=== PATIENT | male | born 1940 | race Hispanic/Latino ===

== ENCOUNTER 2024-09-28 17:38 | Inpatient (IN) | payer MEDICARE ==
[~2024-09-28] VITALS: Ht 160 cm; Wt 71.2 kg
[2024-09-28] MEDS ORDERED: ASPI81CH33 PO (18:00)
[2024-09-28] MEDS ORDERED: FINA5TAB2 PO ×2 (18:00→20:01)
[2024-09-28] MEDS ORDERED: THERTAB52 PO (18:00)
[2024-09-28] MEDS: LIDOCAINE 2% 5ML JELLY UROJET TOP ONE (19:45)
[2024-09-28 20:06] LABS: KETONE, URINE AUTO RFX NEGATIVE (NEGATIVE); MUCUS, URINE RFX SMALL (NEGATIVE); RBC, URINE AUTO RFX 13 /HPF (0-3); SQUAM EPITHELIAL CELL UR AURFX 3 /HPF (0-6)
[2024-09-28 20:10] LABS: LEUKOCYTE ESTERASE UR AUTO RFX 3+ (NEGATIVE); NITRITE, URINE AUTO RFX POSITIVE (NEGATIVE); WBC, URINE AUTO RFX TNTC /HPF (0-3)
[2024-09-28] MEDS: CEPHALEXIN 500 MG CAP PO ONE (20:25)
[2024-09-28] MEDS ORDERED: CEPH500C PO ×2 (20:37→23:38)
[2024-09-28] MEDS: LIDOCAINE 1% MDV 20ML VIAL SC ONE (21:55)
[2024-09-28] MEDS ORDERED: ONDANSETRON 4MG 2ML VIAL As Ordered ONE (22:37)
[2024-09-28] MEDS: ONDANSETRON 4MG 2ML VIAL IV ONE (22:41)
[2024-09-28] MEDS: MORPHINE 4 MG/ML 1ML VIAL IV ONE (22:42)
[2024-09-28] MEDS ORDERED: HOME MED LIST COMPLETE! XX SCH (23:40)
[2024-09-29] VITALS (55 sets, daily range): BP systolic 80–120; BP diastolic 49–87; TEMP 97.8–98.9; O2SAT 91–99
[2024-09-29] MEDS ORDERED: MAALOX 30 ML SUSP *UDC PO PRN (01:50)
[2024-09-29] MEDS: ACETAMINOPHEN *IV* 1,000 MG in IV 1 EA IV ONE (03:00)
[2024-09-29 03:30] LABS: EOS # 0.1 10^3/uL (0.0-0.5); EOS % 0.9 % (0.0-3.0); HEMATOCRIT 41.3 % (42.0-52.0); HEMOGLOBIN 13.1 g/dl (13.5-17.5); LYMPH # 0.5 10^3/uL (1.5-5.0); LYMPH % 9.2 % (24.0-44.0); MEAN CORPUSCULAR HEMOGLOBIN 29.8 pg (27.0-33.0); MEAN CORPUSCULAR HGB CONC 31.7 g/dl (32.0-36.5); MEAN CORPUSCULAR VOLUME 94.1 fl (80.0-96.0); MONO # 0.1 10^3/uL (0.0-0.8); MONO % 1.5 % (2.0-8.0); NEUTROPHILS # 4.7 10^3/uL (1.5-8.5); NEUTROPHILS % 88.2 % (36.0-66.0); PLATELET COUNT, AUTOMATED 268 10^3/uL (150-450); RED BLOOD COUNT 4.39 10^6/uL (4.30-6.10); WHITE BLOOD COUNT 5.3 10^3/uL (4.0-10.0)
[2024-09-29 03:44] LABS: INR 0.94; PARTIAL THROMBOPLASTIN TIME 26.3 SECONDS (24.8-34.2); PROTHROMBIN TIME 12.9 SECONDS (12.5-14.5)
[2024-09-29 03:56] LABS: ALBUMIN 3.7 G/DL (3.2-5.2); ALKALINE PHOSPHATASE 78 U/L (40-129); ALT/SGPT 15 U/L (7.0-40); AST/SGOT 17 U/L (<34); BILIRUBIN,TOTAL 0.6 MG/DL (0.3-1.2); BLOOD UREA NITROGEN 19 MG/DL (9-23); CALCIUM LEVEL 8.7 MG/DL (8.3-10.6); CARBON DIOXIDE LEVEL 24 MMOL/L (20-31); CHLORIDE LEVEL 104 MMOL/L (98-107); CREATININE FOR GFR 1.12 MG/DL (0.70-1.30); GLOMERULAR FILTRATION RATE > 60.0 (>35); GLUCOSE, FASTING 158 MG/DL (74-106); POTASSIUM SERUM 4.2 MMOL/L (3.5-5.1); SODIUM LEVEL 141 MMOL/L (136-145); TOTAL PROTEIN 7.6 G/DL (5.7-8.2)
[2024-09-29] MEDS: cefTRIAXone SOD 2 GM in DEXTROSE 5% (D5W) ADV/MINI-BAG 50 ML IV SCH (04:10)
[2024-09-29] MEDS: NS 500 ML IV ONE (04:15)
[2024-09-29 06:47] LABS: C REACTIVE PROTEIN QUANTITATIV 0.79 MG/DL (<1.0)
[2024-09-29 06:59] LABS: PROCALCITONIN 0.29 ng/ml
[2024-09-29] MEDS: NS (Normal Saline) 0.9% 1,000 ML IV ONE ×2 (08:21→09:50)
[2024-09-29] MEDS ORDERED: ISOVUE-300 61% 100ML VIAL As Ordered ONE (08:27)
[2024-09-29] MEDS ORDERED: CEPHALEXIN 500 MG CAP PO SCH (09:00)
[2024-09-29] MEDS: FINASTERIDE 5MG TAB PO SCH (09:00)
[2024-09-29] MEDS: DOCUSATE SODIUM 100MG CAPSULE PO SCH (09:00)
[2024-09-29 09:47] LABS: APPEARANCE, URINE CLOUDY (CLEAR); BACTERIA, URINE AUTO 2+ (NEGATIVE); BILIRUBIN, URINE AUTO NEGATIVE (NEGATIVE); BLOOD, URINE BLOOD 2+ (NEGATIVE); COLOR, URINE YELLOW (YELLOW); GLUCOSE, URINE (UA) AUTO NEGATIVE (NEGATIVE); KETONE, URINE AUTO NEGATIVE (NEGATIVE); LEUKOCYTE ESTERASE, URINE AUTO 3+ (NEGATIVE); MUCUS, URINE SMALL (NEGATIVE); NITRITE, URINE AUTO POSITIVE (NEGATIVE); PROTEIN, URINE AUTO 2+ mg/dL (NEGATIVE); RBC, URINE AUTO 142 /HPF (0-3); SQUAMOUS EPITHELIAL CELL UR AU 0 /HPF (0-6); UROBILINOGEN, URINE AUTO 0.2 mg/dL (0.0-2.0); WBC, URINE AUTO TNTC /HPF (0-3)
[2024-09-29] MEDS: VASOPRESSIN IN 0.9 % NACL 20 UNIT in IV 1 EA IV STA (11:12)
[2024-09-29] MEDS: NOREPINEPHRINE 4MG IN D5 250ML 4 MG in IV 1 EA IV STA (11:12)
[2024-09-29] MEDS: CEFEPIME HCL 2 GM in DEXTROSE 5% (D5W) ADV/MINI-BAG 50 ML IV STA (11:48)
[2024-09-29] MEDS: VASOPRESSIN IN 0.9 % NACL 20 UNIT in IV 1 EA IV SCH (13:30)
[2024-09-29] MEDS: ACETAMINOPHEN 325 MG TAB PO PRN (14:52)
[2024-09-29] MEDS: PANTOPRAZOLE 40MG VIAL IV SCH (14:52)
[2024-09-29] MEDS: ACETAMINOPHEN *IV* 1,000 MG in IV 1 EA IV STA (16:53)
[2024-09-29] MEDS: NOREPINEPHRINE 4MG IN D5 250ML 4 MG in IV 1 EA IV SCH (18:20)
[2024-09-29 19:23] LABS: HEMATOCRIT 34.4 % (42.0-52.0); MEAN CORPUSCULAR HEMOGLOBIN 29.9 pg (27.0-33.0); MEAN CORPUSCULAR HGB CONC 31.4 g/dl (32.0-36.5); MEAN CORPUSCULAR VOLUME 95.3 fl (80.0-96.0); PLATELET COUNT, AUTOMATED 263 10^3/uL (150-450); RED BLOOD COUNT 3.61 10^6/uL (4.30-6.10); WHITE BLOOD COUNT 16.2 10^3/uL (4.0-10.0)
[2024-09-29 19:25] LABS: HEMOGLOBIN 10.8 g/dl (13.5-17.5)
[2024-09-29 20:06] LABS: ATYPICAL LYMPH 1 % (0-5); MONOCYTES 6 % (0-5); NEUTROPHILS 82 % (28-66); PLATELET ESTIMATE NORMAL (NORMAL)
[2024-09-29] MEDS: ALPRAZolam 0.25 MG TAB PO PRN (20:06)
[2024-09-29 20:08] LABS: POIKILOCYTOSIS 1+
[2024-09-29] MEDS: OLANZapine INTRAMUSCULAR 10MG VIAL IM ONE (21:58)
[2024-09-29 22:40] LABS: ALBUMIN 2.5 G/DL (3.2-5.2); ALKALINE PHOSPHATASE 46 U/L (40-129); ALT/SGPT 18 U/L (7.0-40); AST/SGOT 25 U/L (<34); BILIRUBIN,TOTAL 0.3 MG/DL (0.3-1.2); BLOOD UREA NITROGEN 25 MG/DL (9-23); CALCIUM LEVEL 8.1 MG/DL (8.3-10.6); CARBON DIOXIDE LEVEL 22 MMOL/L (20-31); CHLORIDE LEVEL 108 MMOL/L (98-107); CREATININE FOR GFR 1.17 MG/DL (0.70-1.30); GLOMERULAR FILTRATION RATE > 60.0 (>35); GLUCOSE, FASTING 140 MG/DL (74-106); POTASSIUM SERUM 4.5 MMOL/L (3.5-5.1); SODIUM LEVEL 141 MMOL/L (136-145); TOTAL PROTEIN 5.6 G/DL (5.7-8.2)
[2024-09-29] MEDS: LR 1,000 ML IV ONE (23:17)
[2024-09-30] VITALS (101 sets, daily range): BP systolic 81–128; BP diastolic 46–93; TEMP 98.6–101; O2SAT 83–98
[2024-09-30] MEDS: CEFEPIME HCL 2 GM in DEXTROSE 5% (D5W) ADV/MINI-BAG 50 ML IV SCH (00:34)
[2024-09-30 05:30] LABS: HEMATOCRIT 31.1 % (42.0-52.0); HEMOGLOBIN 10.1 g/dl (13.5-17.5); MEAN CORPUSCULAR HEMOGLOBIN 30.1 pg (27.0-33.0); MEAN CORPUSCULAR HGB CONC 32.5 g/dl (32.0-36.5); MEAN CORPUSCULAR VOLUME 92.8 fl (80.0-96.0); PLATELET COUNT, AUTOMATED 196 10^3/uL (150-450); RED BLOOD COUNT 3.35 10^6/uL (4.30-6.10); WHITE BLOOD COUNT 15.7 10^3/uL (4.0-10.0)
[2024-09-30 05:49] LABS: ALBUMIN 2.3 G/DL (3.2-5.2); ALKALINE PHOSPHATASE 46 U/L (40-129); ALT/SGPT 16 U/L (7.0-40); AST/SGOT 31 U/L (<34); BILIRUBIN,TOTAL 0.4 MG/DL (0.3-1.2); BLOOD UREA NITROGEN 24 MG/DL (9-23); CALCIUM LEVEL 7.9 MG/DL (8.3-10.6); CARBON DIOXIDE LEVEL 26 MMOL/L (20-31); CHLORIDE LEVEL 110 MMOL/L (98-107); CREATININE FOR GFR 1.01 MG/DL (0.70-1.30); GLOMERULAR FILTRATION RATE > 60.0 (>35); GLUCOSE, FASTING 101 MG/DL (74-106); MAGNESIUM LEVEL 1.6 MG/DL (1.8-2.4); POTASSIUM SERUM 4.1 MMOL/L (3.5-5.1); SODIUM LEVEL 144 MMOL/L (136-145); TOTAL PROTEIN 5.3 G/DL (5.7-8.2)
[2024-09-30 06:07] LABS: ANISOCYTOSIS 1+; BASOPHILS 1 % (0-1); LYMPHOCYTES 4 % (16-44); MONOCYTES 4 % (0-5); NEUTROPHILS 75 % (28-66); PLATELET ESTIMATE NORMAL (NORMAL)
[2024-09-30] MEDS: MAG SULF 1GM/100ML (MAG RUN) 1 GM in IV 1 EA IV SCH (06:27)
[2024-09-30] MEDS: cefTRIAXone SOD 2 GM in DEXTROSE 5% (D5W) ADV/MINI-BAG 50 ML IV SCH (09:40)
[2024-09-30] MEDS: ENOXAPARIN 40MG/0.4ML SYRINGE (J1650 PER 10MG) SC SCH (09:40)
[2024-09-30 11:04] LABS: PHOSPHORUS LEVEL 3.2 MG/DL (2.4-5.1)
[2024-09-30] MEDS: D5W/LR 1,000 ML IV SCH (15:32)
[2024-09-30] MEDS: DOCUSATE SOD LIQ 100MG/10ML UDC PO ONE (18:46)
[2024-09-30] MEDS ORDERED: ACETAMINOPHEN *IV* 1,000 MG in IV 1 EA IV ONE (21:10)
[2024-09-30] MEDS: ACETAMINOPHEN *IV* 1,000 MG in IV 1 EA IV ONE (21:19)
[2024-10-01] VITALS (52 sets, daily range): BP systolic 84–163; BP diastolic 42–84; TEMP 97.2–99.8; O2SAT 93–97
[2024-10-01] MEDS: OLANZapine INTRAMUSCULAR 10MG VIAL IM ONE (00:38)
[2024-10-01 04:09] LABS: HEMATOCRIT 32.3 % (42.0-52.0); HEMOGLOBIN 10.3 g/dl (13.5-17.5); MEAN CORPUSCULAR HEMOGLOBIN 29.4 pg (27.0-33.0); MEAN CORPUSCULAR HGB CONC 31.9 g/dl (32.0-36.5); MEAN CORPUSCULAR VOLUME 92.3 fl (80.0-96.0); PLATELET COUNT, AUTOMATED 211 10^3/uL (150-450); WHITE BLOOD COUNT 14.4 10^3/uL (4.0-10.0)
[2024-10-01 04:27] LABS: ALBUMIN 2.2 G/DL (3.2-5.2); ALKALINE PHOSPHATASE 52 U/L (40-129); ALT/SGPT 18 U/L (7.0-40); AST/SGOT 35 U/L (<34); BILIRUBIN,TOTAL 0.3 MG/DL (0.3-1.2); BLOOD UREA NITROGEN 19 MG/DL (9-23); CALCIUM LEVEL 8.2 MG/DL (8.3-10.6); CARBON DIOXIDE LEVEL 26 MMOL/L (20-31); CHLORIDE LEVEL 111 MMOL/L (98-107); CREATININE FOR GFR 0.76 MG/DL (0.70-1.30); GLOMERULAR FILTRATION RATE > 60.0 (>35); GLUCOSE, FASTING 83 MG/DL (74-106); PHOSPHORUS LEVEL 2.1 MG/DL (2.4-5.1); POTASSIUM SERUM 3.9 MMOL/L (3.5-5.1); SODIUM LEVEL 145 MMOL/L (136-145); TOTAL PROTEIN 5.2 G/DL (5.7-8.2)
[2024-10-01 04:39] LABS: EOSINOPHILS 5 % (0-3); LYMPHOCYTES 8 % (16-44); MONOCYTES 3 % (0-5); NEUTROPHILS 73 % (28-66)
[2024-10-01 04:40] LABS: ANISOCYTOSIS 1+
[2024-10-01 04:46] LABS: PLATELET ESTIMATE NORMAL (NORMAL)
[2024-10-01] MEDS: DOCUSATE SOD LIQ 100MG/10ML UDC PO SCH (09:04)
[2024-10-01] MEDS: POTASSIUM PHOSPHATE INJ 30 MMOL in D5W 500 ML IV ONE (10:22)
[2024-10-01] MEDS ORDERED: ISOVUE-370 76% 100ML VIAL As Ordered ONE (11:14)
[2024-10-01 12:33] LABS: APPEARANCE, URINE HAZY (CLEAR); BACTERIA, URINE AUTO NEGATIVE (NEGATIVE); BILIRUBIN, URINE AUTO NEGATIVE (NEGATIVE); BLOOD, URINE BLOOD 2+ (NEGATIVE); COLOR, URINE YELLOW (YELLOW); GLUCOSE, URINE (UA) AUTO NEGATIVE (NEGATIVE); KETONE, URINE AUTO NEGATIVE (NEGATIVE); LEUKOCYTE ESTERASE, URINE AUTO 1+ (NEGATIVE); MUCUS, URINE SMALL (NEGATIVE); NITRITE, URINE AUTO NEGATIVE (NEGATIVE); PROTEIN, URINE AUTO 2+ mg/dL (NEGATIVE); RBC, URINE AUTO 55 /HPF (0-3); SPECIFIC GRAVITY URINE AUTO 1.026 (1.002-1.035); SQUAMOUS EPITHELIAL CELL UR AU 0 /HPF (0-6); UROBILINOGEN, URINE AUTO 0.2 mg/dL (0.0-2.0); WBC, URINE AUTO 12 /HPF (0-3)
[2024-10-01 18:07] LABS: BLOOD UREA NITROGEN 19 MG/DL (9-23); CALCIUM LEVEL 7.8 MG/DL (8.3-10.6); CARBON DIOXIDE LEVEL 25 MMOL/L (20-31); CHLORIDE LEVEL 111 MMOL/L (98-107); CREATININE FOR GFR 0.74 MG/DL (0.70-1.30); GLOMERULAR FILTRATION RATE > 60.0 (>35); GLUCOSE, FASTING 81 MG/DL (74-106); MAGNESIUM LEVEL 2.1 MG/DL (1.8-2.4); PHOSPHORUS LEVEL 3.4 MG/DL (2.4-5.1); SODIUM LEVEL 145 MMOL/L (136-145)
[2024-10-01] MEDS: dexmedeTOMidine 200 MCG in IV 1 EA IV SCH (19:45)
[2024-10-01] MEDS: QUEtiapine FUMARATE 25 MG TAB PO SCH (20:33)
[2024-10-02] VITALS (21 sets, daily range): BP systolic 95–157; BP diastolic 48–75; TEMP 97.3–101.4; O2SAT 84–100
[2024-10-02 06:50] LABS: BASO % 0.3 % (0.0-1.0); EOS # 0.3 10^3/uL (0.0-0.5); EOS % 2.6 % (0.0-3.0); HEMATOCRIT 29.9 % (42.0-52.0); HEMOGLOBIN 9.4 g/dl (13.5-17.5); LYMPH # 0.5 10^3/uL (1.5-5.0); LYMPH % 4.8 % (24.0-44.0); MEAN CORPUSCULAR HGB CONC 31.4 g/dl (32.0-36.5); MEAN CORPUSCULAR VOLUME 92.3 fl (80.0-96.0); MONO # 0.6 10^3/uL (0.0-0.8); MONO % 5.8 % (2.0-8.0); NEUTROPHILS # 8.4 10^3/uL (1.5-8.5); NEUTROPHILS % 85.8 % (36.0-66.0); PLATELET COUNT, AUTOMATED 182 10^3/uL (150-450); RED BLOOD COUNT 3.24 10^6/uL (4.30-6.10); WHITE BLOOD COUNT 9.8 10^3/uL (4.0-10.0)
[2024-10-02 07:32] LABS: ALKALINE PHOSPHATASE 56 U/L (40-129); ALT/SGPT 15 U/L (7.0-40); AST/SGOT 25 U/L (<34); BILIRUBIN,TOTAL 0.3 MG/DL (0.3-1.2); BLOOD UREA NITROGEN 19 MG/DL (9-23); CALCIUM LEVEL 7.8 MG/DL (8.3-10.6); CARBON DIOXIDE LEVEL 25 MMOL/L (20-31); CHLORIDE LEVEL 110 MMOL/L (98-107); CREATININE FOR GFR 0.68 MG/DL (0.70-1.30); GLOMERULAR FILTRATION RATE > 60.0 (>35); GLUCOSE, FASTING 77 MG/DL (74-106); PHOSPHORUS LEVEL 2.9 MG/DL (2.4-5.1); POTASSIUM SERUM 3.7 MMOL/L (3.5-5.1); SODIUM LEVEL 145 MMOL/L (136-145)
[2024-10-02] MEDS: D5W/LR 1,000 ML IV SCH ×2 (08:09→18:00)
[2024-10-02] MEDS ORDERED: SENNA 8.6 MG TAB (SENOKOT) PO PRN (14:55)
[2024-10-02] MEDS: NYSTATIN 500,000U/5ML SUSP UDC SS SCH (18:01)
[2024-10-02] MEDS: DOCUSATE SODIUM 100MG CAPSULE PO SCH (20:16)
[2024-10-03] VITALS (10 sets, daily range): BP systolic 99–143; BP diastolic 51–67; TEMP 97.2–99.7; O2SAT 84–100
[2024-10-03 04:23] LABS: BASO % 0.4 % (0.0-1.0); EOS # 0.3 10^3/uL (0.0-0.5); EOS % 4.6 % (0.0-3.0); HEMATOCRIT 28.6 % (42.0-52.0); HEMOGLOBIN 9.1 g/dl (13.5-17.5); LYMPH # 0.7 10^3/uL (1.5-5.0); LYMPH % 10.2 % (24.0-44.0); MEAN CORPUSCULAR HEMOGLOBIN 29.6 pg (27.0-33.0); MEAN CORPUSCULAR HGB CONC 31.8 g/dl (32.0-36.5); MEAN CORPUSCULAR VOLUME 93.2 fl (80.0-96.0); MONO # 0.9 10^3/uL (0.0-0.8); MONO % 12.5 % (2.0-8.0); NEUTROPHILS # 5.1 10^3/uL (1.5-8.5); NEUTROPHILS % 71.5 % (36.0-66.0); PLATELET COUNT, AUTOMATED 155 10^3/uL (150-450); RED BLOOD COUNT 3.07 10^6/uL (4.30-6.10); WHITE BLOOD COUNT 7.2 10^3/uL (4.0-10.0)
[2024-10-03 04:48] LABS: ALBUMIN 1.9 G/DL (3.2-5.2); ALKALINE PHOSPHATASE 69 U/L (40-129); ALT/SGPT 17 U/L (7.0-40); AST/SGOT 21 U/L (<34); BILIRUBIN,TOTAL 0.4 MG/DL (0.3-1.2); BLOOD UREA NITROGEN 19 MG/DL (9-23); CALCIUM LEVEL 7.7 MG/DL (8.3-10.6); CARBON DIOXIDE LEVEL 27 MMOL/L (20-31); CHLORIDE LEVEL 111 MMOL/L (98-107); CREATININE FOR GFR 0.69 MG/DL (0.70-1.30); GLOMERULAR FILTRATION RATE > 60.0 (>35); GLUCOSE, FASTING 107 MG/DL (74-106); POTASSIUM SERUM 3.4 MMOL/L (3.5-5.1); SODIUM LEVEL 145 MMOL/L (136-145); TOTAL PROTEIN 4.9 G/DL (5.7-8.2)
[2024-10-03] MEDS: KCL 20MEQ IN 100ML SWI (KRUN) 20 MEQ in IV 1 EA IV SCH (06:32)
[2024-10-03] MEDS ORDERED: ALBUTEROL SULFATE 2.5MG/0.5ML INH NEB SOLN NEB PRN (12:00)
[2024-10-03] MEDS: ACETAMINOPHEN *IV* 1,000 MG in IV 1 EA IV ONE (12:19)
[2024-10-03] MEDS: MIRALAX *UNIT DOSE* 17GM PACKET PO PRN (12:28)
[2024-10-03] MEDS: CEFUROXIME 500 MG TAB PO SCH (12:34)
[2024-10-03] MEDS ORDERED: BISACODYL 10MG SUPP PR PRN (14:05)
[2024-10-03 14:33] LABS: CHOLESTEROL LEVEL 109 MG/DL (<200); CHOLESTEROL RISK RATIO 6.68 (<5); HDL CHOLESTEROL 16.3 MG/DL (>40); LDL CHOLESTEROL 67.3 MG/DL (<100); MAGNESIUM LEVEL 1.8 MG/DL (1.8-2.4); NON-HDL-C 92.7 MG/DL; TRIGLYCERIDES LEVEL 127 MG/DL (<150)
[2024-10-03] MEDS: BISACODYL 10MG SUPP PR SCH (18:30)
[2024-10-03] MEDS: RAMELTEON 8 MG TAB (ROZEREM) PO SCH (19:44)
[2024-10-03] MEDS: DICLOFENAC EPOLAMINE 1.3% PATCH TOP SCH (19:45)
[2024-10-03] MEDS ORDERED: traZODone 25MG PER 1/2 TABLET PO PRN (21:00)
[2024-10-04 04:00] VITALS: BP 149/67; TEMP 97.6; O2SAT 97
[2024-10-04 06:59] LABS: HEMATOCRIT 34.5 % (42.0-52.0); HEMOGLOBIN 10.7 g/dl (13.5-17.5); MEAN CORPUSCULAR HEMOGLOBIN 28.6 pg (27.0-33.0); MEAN CORPUSCULAR VOLUME 92.2 fl (80.0-96.0); PLATELET COUNT, AUTOMATED 198 10^3/uL (150-450); RED BLOOD COUNT 3.74 10^6/uL (4.30-6.10); WHITE BLOOD COUNT 7.3 10^3/uL (4.0-10.0)
[2024-10-04 07:40] LABS: ALBUMIN 2.1 G/DL (3.2-5.2); ALKALINE PHOSPHATASE 95 U/L (40-129); ALT/SGPT 24 U/L (7.0-40); AST/SGOT 33 U/L (<34); BILIRUBIN,TOTAL 0.5 MG/DL (0.3-1.2); BLOOD UREA NITROGEN 16 MG/DL (9-23); CARBON DIOXIDE LEVEL 27 MMOL/L (20-31); CHLORIDE LEVEL 106 MMOL/L (98-107); CREATININE FOR GFR 0.59 MG/DL (0.70-1.30); GLOMERULAR FILTRATION RATE > 60.0 (>35); GLUCOSE, FASTING 93 MG/DL (74-106); MAGNESIUM LEVEL 1.7 MG/DL (1.8-2.4); POTASSIUM SERUM 4.2 MMOL/L (3.5-5.1); SODIUM LEVEL 140 MMOL/L (136-145); TOTAL PROTEIN 5.6 G/DL (5.7-8.2)
[2024-10-04 08:00] VITALS: BP 139/66; TEMP 97.2; O2SAT 98
[2024-10-04 08:07] LABS: PROCALCITONIN 1.64 ng/ml
[2024-10-04] MEDS: DICLOFENAC 1% TOPICAL GEL (PATIENT'S OWN MED) TOP SCH (10:09)
[2024-10-04 12:00] VITALS: BP 129/79; TEMP 97.3; O2SAT 97
[2024-10-04 14:45] VITALS: BP 108/55; TEMP 97.7
[2024-10-04 21:00] VITALS: BP 125/55; TEMP 98.1; O2SAT 98
[2024-10-05 04:13] VITALS: BP 118/54; TEMP 98.6; O2SAT 97
[2024-10-05 06:33] LABS: HEMATOCRIT 31.1 % (42.0-52.0); HEMOGLOBIN 9.9 g/dl (13.5-17.5); MEAN CORPUSCULAR HEMOGLOBIN 28.9 pg (27.0-33.0); MEAN CORPUSCULAR HGB CONC 31.8 g/dl (32.0-36.5); MEAN CORPUSCULAR VOLUME 90.9 fl (80.0-96.0); PLATELET COUNT, AUTOMATED 207 10^3/uL (150-450); RED BLOOD COUNT 3.42 10^6/uL (4.30-6.10)
[2024-10-05 06:54] LABS: BLOOD UREA NITROGEN 20 MG/DL (9-23); CALCIUM LEVEL 7.9 MG/DL (8.3-10.6); CARBON DIOXIDE LEVEL 26 MMOL/L (20-31); CHLORIDE LEVEL 108 MMOL/L (98-107); CREATININE FOR GFR 0.64 MG/DL (0.70-1.30); GLOMERULAR FILTRATION RATE > 60.0 (>35); GLUCOSE, FASTING 103 MG/DL (74-106); POTASSIUM SERUM 3.7 MMOL/L (3.5-5.1); SODIUM LEVEL 141 MMOL/L (136-145)
[2024-10-05 07:00] LABS: ALBUMIN 1.8 G/DL (3.2-5.2); BILIRUBIN,DIRECT 0.1 MG/DL (<0.4); BILIRUBIN,TOTAL 0.4 MG/DL (0.3-1.2); TOTAL PROTEIN 5.1 G/DL (5.7-8.2)
[2024-10-05 20:15] VITALS: BP 117/53; TEMP 98.1; O2SAT 93
[2024-10-05] MEDS: ACETAMINOPHEN 500 MG TAB PO SCH (21:10)
[2024-10-06 04:20] VITALS: BP 115/62; TEMP 97.9; O2SAT 95
[2024-10-06 05:45] LABS: MEAN CORPUSCULAR HEMOGLOBIN 29.6 pg (27.0-33.0); MEAN CORPUSCULAR HGB CONC 32.1 g/dl (32.0-36.5); MEAN CORPUSCULAR VOLUME 92.1 fl (80.0-96.0); PLATELET COUNT, AUTOMATED 228 10^3/uL (150-450); RED BLOOD COUNT 3.04 10^6/uL (4.30-6.10); WHITE BLOOD COUNT 6.4 10^3/uL (4.0-10.0)
[2024-10-06 06:08] LABS: BLOOD UREA NITROGEN 22 MG/DL (9-23); CALCIUM LEVEL 7.8 MG/DL (8.3-10.6); CARBON DIOXIDE LEVEL 26 MMOL/L (20-31); CHLORIDE LEVEL 109 MMOL/L (98-107); CREATININE FOR GFR 0.63 MG/DL (0.70-1.30); GLOMERULAR FILTRATION RATE > 60.0 (>35); GLUCOSE, FASTING 103 MG/DL (74-106); POTASSIUM SERUM 3.7 MMOL/L (3.5-5.1); SODIUM LEVEL 142 MMOL/L (136-145)
[2024-10-06 12:30] VITALS: BP 109/57; TEMP 98.1; O2SAT 98
[2024-10-06 20:04] VITALS: BP 112/57; TEMP 97.9; O2SAT 97
[2024-10-07 04:20] VITALS: BP 148/64; TEMP 97.5; O2SAT 98
[2024-10-07 06:57] LABS: HEMATOCRIT 31.8 % (42.0-52.0); HEMOGLOBIN 9.9 g/dl (13.5-17.5); MEAN CORPUSCULAR HEMOGLOBIN 29.2 pg (27.0-33.0); MEAN CORPUSCULAR HGB CONC 31.1 g/dl (32.0-36.5); MEAN CORPUSCULAR VOLUME 93.8 fl (80.0-96.0); PLATELET COUNT, AUTOMATED 302 10^3/uL (150-450); RED BLOOD COUNT 3.39 10^6/uL (4.30-6.10); WHITE BLOOD COUNT 6.6 10^3/uL (4.0-10.0)
[2024-10-07 07:35] LABS: BLOOD UREA NITROGEN 15 MG/DL (9-23); CALCIUM LEVEL 8.9 MG/DL (8.3-10.6); CARBON DIOXIDE LEVEL 26 MMOL/L (20-31); CHLORIDE LEVEL 107 MMOL/L (98-107); CREATININE FOR GFR 0.54 MG/DL (0.70-1.30); GLOMERULAR FILTRATION RATE > 60.0 (>35); GLUCOSE, FASTING 94 MG/DL (74-106); MAGNESIUM LEVEL 1.9 MG/DL (1.8-2.4); POTASSIUM SERUM 3.9 MMOL/L (3.5-5.1); SODIUM LEVEL 143 MMOL/L (136-145)
[2024-10-07 12:33] VITALS: BP 108/53; TEMP 97.9; O2SAT 96
[2024-10-07 13:42] LABS: C REACTIVE PROTEIN QUANTITATIV 13.26 MG/DL (<1.0)
[2024-10-07 13:44] LABS: ERYTHROCYTE SEDIMENTATION RATE 97 mm/hr (0-20)
[2024-10-07 19:20] LABS: SOURCE, BODY FLUID RT KNEE; SYNOVIAL FLUID COLOR YELLOW (COLORLESS)
[2024-10-07 19:32] LABS: SOURCE, BODY FLUID CRYSTALS RT KNEE
[2024-10-07 19:52] VITALS: BP 139/58; TEMP 97.5; O2SAT 99
[2024-10-07] MEDS: traZODone 50 MG TAB PO PRN (21:27)
[2024-10-07] MEDS: OLANZapine ORAL DISINTEGRATING TAB 5MG PO ONE (22:06)
[2024-10-08 03:33] VITALS: BP 139/61; TEMP 97.9; O2SAT 96
[2024-10-08] MEDS: IBUPROFEN 400MG TAB PO ONE (04:12)
[2024-10-08 06:53] LABS: HEMATOCRIT 30.9 % (42.0-52.0); HEMOGLOBIN 9.7 g/dl (13.5-17.5); MEAN CORPUSCULAR HEMOGLOBIN 29.1 pg (27.0-33.0); MEAN CORPUSCULAR HGB CONC 31.4 g/dl (32.0-36.5); MEAN CORPUSCULAR VOLUME 92.8 fl (80.0-96.0); PLATELET COUNT, AUTOMATED 334 10^3/uL (150-450); RED BLOOD COUNT 3.33 10^6/uL (4.30-6.10); WHITE BLOOD COUNT 6.3 10^3/uL (4.0-10.0)
[2024-10-08 07:19] LABS: BLOOD UREA NITROGEN 10 MG/DL (9-23); CALCIUM LEVEL 8.3 MG/DL (8.3-10.6); CARBON DIOXIDE LEVEL 28 MMOL/L (20-31); CHLORIDE LEVEL 108 MMOL/L (98-107); CREATININE FOR GFR 0.55 MG/DL (0.70-1.30); GLOMERULAR FILTRATION RATE > 60.0 (>35); GLUCOSE, FASTING 87 MG/DL (74-106); SODIUM LEVEL 145 MMOL/L (136-145)
[2024-10-08 09:49] LABS: CRYSTALS, BODY FLUID CA PYROPHOSPHATE (NONE SEEN)
[2024-10-08 12:30] VITALS: BP 105/52; TEMP 97.9; O2SAT 96
[2024-10-08 17:10] LABS: C REACTIVE PROTEIN QUANTITATIV 8.56 MG/DL (<1.0)
[2024-10-08] MEDS: COLCHICINE 0.6 MG TABLET PO SCH (20:38)
[2024-10-08] MEDS ORDERED: MELATONIN 10 MG PO SCH (21:00)
[2024-10-08 21:39] VITALS: BP 120/53; TEMP 97.9; O2SAT 95
[2024-10-09 05:46] LABS: HEMATOCRIT 31.1 % (42.0-52.0); HEMOGLOBIN 9.6 g/dl (13.5-17.5); MEAN CORPUSCULAR HEMOGLOBIN 28.9 pg (27.0-33.0); MEAN CORPUSCULAR HGB CONC 30.9 g/dl (32.0-36.5); MEAN CORPUSCULAR VOLUME 93.7 fl (80.0-96.0); PLATELET COUNT, AUTOMATED 351 10^3/uL (150-450); RED BLOOD COUNT 3.32 10^6/uL (4.30-6.10); WHITE BLOOD COUNT 6.6 10^3/uL (4.0-10.0)
[2024-10-09 06:12] LABS: BLOOD UREA NITROGEN 11 MG/DL (9-23); C REACTIVE PROTEIN QUANTITATIV 5.99 MG/DL (<1.0); CALCIUM LEVEL 8.3 MG/DL (8.3-10.6); CARBON DIOXIDE LEVEL 27 MMOL/L (20-31); CHLORIDE LEVEL 108 MMOL/L (98-107); CREATININE FOR GFR 0.55 MG/DL (0.70-1.30); GLOMERULAR FILTRATION RATE > 60.0 (>35); GLUCOSE, FASTING 93 MG/DL (74-106); POTASSIUM SERUM 4.1 MMOL/L (3.5-5.1); SODIUM LEVEL 143 MMOL/L (136-145)
[2024-10-09 06:25] VITALS: BP 119/52; TEMP 97.9; O2SAT 95
[2024-10-09 07:30] VITALS: BP 115/79; TEMP 97.9; O2SAT 95
[2024-10-09 09:00] VITALS: BP 115/79; TEMP 97.9; O2SAT 95
[2024-10-09 21:00] VITALS: BP 122/73; TEMP 97.7
[2024-10-09] MEDS: RAMELTEON 8 MG TAB (ROZEREM) PO SCH (22:46)
[2024-10-10 04:41] VITALS: BP 126/73; TEMP 97.9
[2024-10-10 07:04] LABS: HEMATOCRIT 31.9 % (42.0-52.0); HEMOGLOBIN 9.9 g/dl (13.5-17.5); MEAN CORPUSCULAR HEMOGLOBIN 29.1 pg (27.0-33.0); MEAN CORPUSCULAR VOLUME 93.8 fl (80.0-96.0); PLATELET COUNT, AUTOMATED 392 10^3/uL (150-450); WHITE BLOOD COUNT 5.9 10^3/uL (4.0-10.0)
[2024-10-10 07:46] LABS: BLOOD UREA NITROGEN 10 MG/DL (9-23); C REACTIVE PROTEIN QUANTITATIV 3.53 MG/DL (<1.0); CALCIUM LEVEL 8.4 MG/DL (8.3-10.6); CARBON DIOXIDE LEVEL 26 MMOL/L (20-31); CHLORIDE LEVEL 107 MMOL/L (98-107); CREATININE FOR GFR 0.55 MG/DL (0.70-1.30); GLOMERULAR FILTRATION RATE > 60.0 (>35); GLUCOSE, FASTING 87 MG/DL (74-106); POTASSIUM SERUM 4.3 MMOL/L (3.5-5.1); SODIUM LEVEL 141 MMOL/L (136-145)
[2024-10-10] MEDS: FAMOTIDINE 20 MG TAB PO SCH (09:08)
[2024-10-10] MEDS ORDERED: COLC0.6T47 PO (11:04)
[2024-10-10] MEDS ORDERED: NYST-38 SS (11:24)
== END 2024-10-10 13:20 | disposition home or self-care (01) | DRG 871 ==
LOC: M ED 17:38 → M ED INP 17:39 → OBSVTOIN 09-29 02:13 → M ICU 09-29 11:56 → M MS5PR 10-04 14:35
PROVIDERS: ADMIT Internal Medicine; ATTEND Student in an Organized Health Care Education/Training Program
PROC: B246ZZZ Ultrasonography of Right and Left Heart (ICD-10-PCS; 2024-09-29)
PROC: 0T9B30Z Drainage of Bladder with Drainage Device, Percutaneous Approach (ICD-10-PCS; 2024-09-29)
PROC: BT1BZZZ Fluoroscopy of Bladder and Urethra (ICD-10-PCS; 2024-09-29)
PROC: 02HV33Z Insertion of Infusion Device into Superior Vena Cava, Percutaneous Approach (ICD-10-PCS; principal; 2024-09-29 14:00)
PROC: 0S9C3ZX Drainage of Right Knee Joint, Percutaneous Approach, Diagnostic (ICD-10-PCS; 2024-10-07)
DX: A41.9 Sepsis, unspecified organism (principal); R65.21 Severe sepsis with septic shock; G93.41 Metabolic encephalopathy; N39.0 Urinary tract infection, site not specified; E87.20 Acidosis, unspecified; B37.0 Candidal stomatitis; R33.9 Retention of urine, unspecified; N35.811 Other urethral stricture, male, meatal; M79.89 Other specified soft tissue disorders; B96.20 Unspecified Escherichia coli [E. coli] as the cause of diseases classified elsewhere; E83.42 Hypomagnesemia; R13.10 Dysphagia, unspecified; K56.41 Fecal impaction; M16.0 Bilateral primary osteoarthritis of hip; Z66 Do not resuscitate; I25.10 Atherosclerotic heart disease of native coronary artery without angina pectoris; M11.261 Other chondrocalcinosis, right knee; K21.9 Gastro-esophageal reflux disease without esophagitis; F41.9 Anxiety disorder, unspecified; M25.512 Pain in left shoulder; E87.6 Hypokalemia; M25.461 Effusion, right knee; Z92.3 Personal history of irradiation; Z85.46 Personal history of malignant neoplasm of prostate; Z79.82 Long term (current) use of aspirin; Z79.899 Other long term (current) drug therapy

== ENCOUNTER → 2024-10-18 | Outpatient (REF) | payer MEDICARE ==
[~2024-10-18] MED LIST: ASPI81CH33 PO; CEPH500C PO; COLC0.6T47 PO; FINA5TAB2 PO; NYST-38 SS; THERTAB52 PO
[2024-10-18 18:34] LABS: BASO # 0.1 10^3/uL (0.0-0.2); BASO % 1.3 % (0.0-1.0); EOS # 0.4 10^3/uL (0.0-0.5); HEMATOCRIT 34.2 % (42.0-52.0); HEMOGLOBIN 10.6 g/dl (13.5-17.5); LYMPH # 1.4 10^3/uL (1.5-5.0); LYMPH % 20.1 % (24.0-44.0); MEAN CORPUSCULAR HEMOGLOBIN 29.4 pg (27.0-33.0); MEAN CORPUSCULAR VOLUME 94.7 fl (80.0-96.0); MONO % 13.9 % (2.0-8.0); NEUTROPHILS # 4.1 10^3/uL (1.5-8.5); NEUTROPHILS % 58.4 % (36.0-66.0); PLATELET COUNT, AUTOMATED 472 10^3/uL (150-450); RED BLOOD COUNT 3.61 10^6/uL (4.30-6.10)
[2024-10-18 18:51] LABS: ERYTHROCYTE SEDIMENTATION RATE 87 mm/hr (0-20)
[2024-10-18 19:06] LABS: RHEUMATOID FACTOR QUANT < 3.5 IU/ML (<14)
[2024-10-18 19:07] LABS: ALBUMIN 2.9 G/DL (3.2-5.2); ALKALINE PHOSPHATASE 98 U/L (40-129); ALT/SGPT 26 U/L (7.0-40); AST/SGOT 20 U/L (<34); BILIRUBIN,TOTAL 0.2 MG/DL (0.3-1.2); BLOOD UREA NITROGEN 17 MG/DL (9-23); CALCIUM LEVEL 8.9 MG/DL (8.3-10.6); CARBON DIOXIDE LEVEL 32 MMOL/L (20-31); CHLORIDE LEVEL 102 MMOL/L (98-107); CREATININE FOR GFR 0.69 MG/DL (0.70-1.30); GLOMERULAR FILTRATION RATE > 60.0 (>35); GLUCOSE, FASTING 83 MG/DL (74-106); SODIUM LEVEL 138 MMOL/L (136-145); TOTAL PROTEIN 6.6 G/DL (5.7-8.2)
[2024-10-18 19:08] LABS: C REACTIVE PROTEIN QUANTITATIV 1.47 MG/DL (<1.0)
== END ==
LOC: M LAB REF 17:31
PROVIDERS: ATTEND Student in an Organized Health Care Education/Training Program
DX: M11.80 Other specified crystal arthropathies, unspecified site (principal)

== ENCOUNTER → 2024-11-02 | Outpatient (REF) | payer MEDICARE, MEDICAID ==
[~2024-11-02] MED LIST changes: +DOXE3TAB; +OXYB5TAB14 PO; +TAMS1CAP17
[2024-11-02 18:58] LABS: BASO # 0.1 10^3/uL (0.0-0.2); BASO % 0.7 % (0.0-1.0); EOS # 0.5 10^3/uL (0.0-0.5); EOS % 5.9 % (0.0-3.0); HEMATOCRIT 37.8 % (42.0-52.0); HEMOGLOBIN 11.8 g/dl (13.5-17.5); LYMPH # 1.6 10^3/uL (1.5-5.0); LYMPH % 20.1 % (24.0-44.0); MEAN CORPUSCULAR HEMOGLOBIN 29.4 pg (27.0-33.0); MEAN CORPUSCULAR HGB CONC 31.2 g/dl (32.0-36.5); MONO % 11.9 % (2.0-8.0); NEUTROPHILS % 61.2 % (36.0-66.0); PLATELET COUNT, AUTOMATED 268 10^3/uL (150-450); RED BLOOD COUNT 4.02 10^6/uL (4.30-6.10); WHITE BLOOD COUNT 8.1 10^3/uL (4.0-10.0)
[2024-11-02 19:12] LABS: FERRITIN 372.6 NG/ML (10.5-307.3)
[2024-11-02 19:13] LABS: VITAMIN B12 LEVEL 643 PG/ML (211-911)
[2024-11-02 19:36] LABS: FOLATE > 24.0 NG/ML (>5.4)
[2024-11-02 20:59] LABS: IRON (FE) 47 UG/DL (65-175); PERCENT SATURATION 17.7 % (19.7-50.0); TOTAL IRON BINDING CAPACITY 266 UG/DL (250-425)
== END ==
LOC: M LAB REF 17:38
PROVIDERS: ATTEND Student in an Organized Health Care Education/Training Program
DX: D64.9 Anemia, unspecified (principal); D50.9 Iron deficiency anemia, unspecified

== ENCOUNTER 2024-11-03 08:18 | Emergency (ER) | payer MEDICARE, MEDICAID ==
[~2024-11-03] VITALS: Ht 160 cm; Wt 65.0 kg
[~2024-11-03 08:18] MED LIST changes: -DOXE3TAB; -OXYB5TAB14 PO; -TAMS1CAP17
[2024-11-03] MEDS ORDERED: DOXE3TAB (08:33)
[2024-11-03] MEDS ORDERED: TAMS1CAP17 (08:33)
[2024-11-03] MEDS: ACETAMINOPHEN 325 MG TAB PO ONE (10:08)
[2024-11-03 10:16] LABS: BASO # 0.1 10^3/uL (0.0-0.2); BASO % 0.9 % (0.0-1.0); EOS # 0.5 10^3/uL (0.0-0.5); EOS % 7.5 % (0.0-3.0); HEMOGLOBIN 11.6 g/dl (13.5-17.5); LYMPH # 1.4 10^3/uL (1.5-5.0); LYMPH % 20.8 % (24.0-44.0); MEAN CORPUSCULAR HEMOGLOBIN 29.4 pg (27.0-33.0); MEAN CORPUSCULAR HGB CONC 31.4 g/dl (32.0-36.5); MEAN CORPUSCULAR VOLUME 93.9 fl (80.0-96.0); MONO # 0.8 10^3/uL (0.0-0.8); MONO % 10.8 % (2.0-8.0); NEUTROPHILS # 4.2 10^3/uL (1.5-8.5); NEUTROPHILS % 59.9 % (36.0-66.0); PLATELET COUNT, AUTOMATED 218 10^3/uL (150-450); RED BLOOD COUNT 3.94 10^6/uL (4.30-6.10); WHITE BLOOD COUNT 6.9 10^3/uL (4.0-10.0)
[2024-11-03 10:39] LABS: BLOOD UREA NITROGEN 13 MG/DL (9-23); CALCIUM LEVEL 8.8 MG/DL (8.3-10.6); CARBON DIOXIDE LEVEL 31 MMOL/L (20-31); CHLORIDE LEVEL 104 MMOL/L (98-107); CREATININE FOR GFR 0.67 MG/DL (0.70-1.30); GLOMERULAR FILTRATION RATE > 90.0 (>35); GLUCOSE, FASTING 88 MG/DL (74-106); SODIUM LEVEL 140 MMOL/L (136-145)
[2024-11-03 10:43] LABS: KETONE, URINE AUTO RFX NEGATIVE (NEGATIVE); MUCUS, URINE RFX SMALL (NEGATIVE); NITRITE, URINE AUTO RFX NEGATIVE (NEGATIVE); RBC, URINE AUTO RFX 3 /HPF (0-3); SQUAM EPITHELIAL CELL UR AURFX 0 /HPF (0-6)
[2024-11-03 10:49] LABS: LEUKOCYTE ESTERASE UR AUTO RFX 3+ (NEGATIVE); WBC, URINE AUTO RFX 11 /HPF (0-3)
[2024-11-03] MEDS ORDERED: oxyBUTYnin 5 MG TAB PO SCH (11:10)
[2024-11-03] MEDS ORDERED: OXYB5TAB14 PO (11:11)
[2024-11-03 11:15] VITALS: BP 129/59; TEMP 97.4; O2SAT 97
[2024-11-03] MEDS: oxyBUTYnin 5 MG TAB PO ONE (11:23)
== END 2024-11-03 11:30 | disposition home or self-care (01) ==
LOC: M ED 08:18 → EEVIPCON 08:18 → M ED 11:30
DX: N32.89 Other specified disorders of bladder (principal); F32.A Depression, unspecified; Z79.1 Long term (current) use of non-steroidal anti-inflammatories (NSAID); Z79.899 Other long term (current) drug therapy; Z79.810 Long term (current) use of selective estrogen receptor modulators (SERMs)

== ENCOUNTER → 2024-11-10 | Outpatient (REF) | payer MEDICARE, MEDICAID ==
[~2024-11-10] MED LIST changes: +DOXE3TAB; +OXYB5TAB14 PO; +TAMS1CAP17
[2024-11-10 13:22] LABS: BASO # 0.1 10^3/uL (0.0-0.2); BASO % 0.6 % (0.0-1.0); EOS # 0.7 10^3/uL (0.0-0.5); EOS % 7.4 % (0.0-3.0); HEMATOCRIT 37.7 % (42.0-52.0); HEMOGLOBIN 11.4 g/dl (13.5-17.5); LYMPH # 1.4 10^3/uL (1.5-5.0); LYMPH % 13.8 % (24.0-44.0); MEAN CORPUSCULAR HEMOGLOBIN 28.7 pg (27.0-33.0); MEAN CORPUSCULAR HGB CONC 30.2 g/dl (32.0-36.5); MONO # 0.9 10^3/uL (0.0-0.8); MONO % 9.2 % (2.0-8.0); NEUTROPHILS # 6.8 10^3/uL (1.5-8.5); NEUTROPHILS % 68.7 % (36.0-66.0); PLATELET COUNT, AUTOMATED 213 10^3/uL (150-450); RED BLOOD COUNT 3.97 10^6/uL (4.30-6.10)
== END ==
LOC: M LAB REF 12:43
PROVIDERS: ATTEND Student in an Organized Health Care Education/Training Program
DX: N39.0 Urinary tract infection, site not specified (principal)

== ENCOUNTER 2024-11-15 05:37 | Emergency (ER) | payer MEDICARE, MEDICAID ==
[~2024-11-15] VITALS: Ht 160 cm; Wt 71.8 kg
[2024-11-15 09:11] LABS: KETONE, URINE AUTO RFX NEGATIVE (NEGATIVE); LEUKOCYTE ESTERASE UR AUTO RFX 2+ (NEGATIVE); MUCUS, URINE RFX SMALL (NEGATIVE); NITRITE, URINE AUTO RFX NEGATIVE (NEGATIVE); RBC, URINE AUTO RFX 1 /HPF (0-3); SQUAM EPITHELIAL CELL UR AURFX 0 /HPF (0-6); WBC, URINE AUTO RFX 5 /HPF (0-3); YEAST LIKE CELL URINE AUTO RFX SMALL
[2024-11-15 09:50] VITALS: BP 120/59; TEMP 97.2; O2SAT 98
== END 2024-11-15 10:49 | disposition home or self-care (01) ==
LOC: EDBD 05:37 → M ED 05:37
DX: N32.81 Overactive bladder (principal); F32.A Depression, unspecified; Z85.46 Personal history of malignant neoplasm of prostate; Z79.1 Long term (current) use of non-steroidal anti-inflammatories (NSAID); Z79.899 Other long term (current) drug therapy; Z79.810 Long term (current) use of selective estrogen receptor modulators (SERMs)

== ENCOUNTER → 2025-03-30 | Outpatient (REF) | payer MEDICARE, MEDICAID ==
[~2025-03-30] MED LIST changes: +AUGM500T34 PO; +COLA100C5 PO; -COLC0.6T47 PO; +COLC0.6T53 PO; +DOXE6TAB PO; +IRON325T2 PO; +KETO2CR; +LEVO1TAB39 PO; +PYRI1TAB5 PO; -TAMS1CAP17; +TAMS1CAP17 PO
[2025-03-30 14:32] LABS: APPEARANCE, URINE CLEAR (CLEAR); BACTERIA, URINE AUTO NEGATIVE (NEGATIVE); BILIRUBIN, URINE AUTO NEGATIVE (NEGATIVE); BLOOD, URINE BLOOD NEGATIVE (NEGATIVE); GLUCOSE, URINE (UA) AUTO NEGATIVE (NEGATIVE); KETONE, URINE AUTO NEGATIVE (NEGATIVE); LEUKOCYTE ESTERASE, URINE AUTO NEGATIVE (NEGATIVE); MUCUS, URINE SMALL (NEGATIVE); NITRITE, URINE AUTO NEGATIVE (NEGATIVE); PROTEIN, URINE AUTO NEGATIVE (NEGATIVE); RBC, URINE AUTO 1 /HPF (0-3); SPECIFIC GRAVITY URINE AUTO 1.015 (1.002-1.035); SQUAMOUS EPITHELIAL CELL UR AU 0 /HPF (0-6); UROBILINOGEN, URINE AUTO 0.2 mg/dL (0.0-2.0); WBC, URINE AUTO 1 /HPF (0-3)
== END ==
LOC: M SMT 13:20
PROVIDERS: ATTEND Urology
DX: N35.919 Unspecified urethral stricture, male, unspecified site (principal); Z79.899 Other long term (current) drug therapy

== ENCOUNTER → 2025-06-01 | Outpatient (REF) | payer MEDICARE, MEDICAID ==
[2025-06-01 16:46] LABS: BASO # 0.0 10^3/uL (0.0-0.2); BASO % 0.7 % (0.0-1.0); EOS # 0.7 10^3/uL (0.0-0.5); EOS % 11.6 % (0.0-3.0); LYMPH # 1.8 10^3/uL (1.5-5.0); LYMPH % 29.9 % (24.0-44.0); MONO # 0.6 10^3/uL (0.0-0.8); MONO % 9.6 % (2.0-8.0); NEUTROPHILS # 2.9 10^3/uL (1.5-8.5); NEUTROPHILS % 48.0 % (36.0-66.0); PLATELET COUNT, AUTOMATED 208 10^3/uL (150-450)
[2025-06-01 16:52] LABS: CHOLESTEROL LEVEL 212.0 MG/DL (<200); CHOLESTEROL RISK RATIO 6.6 (<5); IRON (FE) 79.0 UG/DL (65-175); LDL CHOLESTEROL 134.1 MG/DL (<100); NON-HDL-C 179.9 MG/DL; TRIGLYCERIDES LEVEL 229.0 MG/DL (<150)
[2025-06-01 17:20] LABS: ESTIMATED AVERAGE GLUCOSE 108.0 MG/DL (60-110)
== END ==
LOC: M LAB REF 16:17
PROVIDERS: ATTEND Student in an Organized Health Care Education/Training Program
DX: D50.9 Iron deficiency anemia, unspecified (principal); Z68.28 Body mass index [BMI] 28.0-28.9, adult; G47.00 Insomnia, unspecified; Z79.899 Other long term (current) drug therapy